=== PATIENT | male | born 1970 ===

== ENCOUNTER → 2022-02-16 08:42 | Outpatient (CLI) | payer OTHER, SELFPAY ==
[2022-02-16 19:53] LABS: COVID19 - ORCAS (NP or Nasal) Negative (Negative)
== END ==
PROVIDERS: PCP Physician Assistant; Visit Provider Physician Assistant
DX: Z01.812 Encounter for preprocedural laboratory examination (principal); Z20.822 Contact with and (suspected) exposure to COVID-19
CPT/HCPCS: U0003